=== PATIENT | male | born 1995 ===

== ENCOUNTER 2020-12-07 11:55 | Emergency (ER) | payer OTHER ==
[~2020-12-07] VITALS: Ht 160 cm; Wt 72.6 kg
[2020-12-07] MEDS ORDERED: KETO10TA2 PO (15:52)
[2020-12-07] MEDS ORDERED: AMOX-CLAV 875-1 EAC1 PO (15:52)
== END 2020-12-07 16:26 | disposition home or self-care (01) ==
LOC: ER 11:55
DX: L03.114 Cellulitis of left upper limb (principal); Z11.52 Encounter for screening for COVID-19